=== PATIENT | female | born 1990 ===

== ENCOUNTER → 2017-01-20 | Outpatient (CLI) | payer BC ==
[2017-01-22 23:02] LABS: CHLAMYDIA TRACH RNA*** NOT DETECTED (NOT DETECTED); GC (NEIS GONORRHOEAE)RNA** NOT DETECTED (NOT DETECTED)
== END | disposition home or self-care (01) ==
LOC: C.LABSPEC 13:41
PROVIDERS: ATTEND Obstetrics & Gynecology
DX: Z11.3 Encounter for screening for infections with a predominantly sexual mode of transmission (principal)

== ENCOUNTER → 2017-01-20 | Outpatient (CLI) | payer BC | END | disposition home or self-care (01) | LOC: C.PAPS 14:28 | PROVIDERS: ATTEND Obstetrics & Gynecology | DX: Z01.419 Encounter for gynecological examination (general) (routine) without abnormal findings (principal) ==

== ENCOUNTER → 2017-04-03 | Outpatient (CLI) | payer BC ==
--- NOTE | 2017-04-04 06:36 | DIAGNOSTIC IMAGING REPORT ---
SCOLIOSIS SERIES CLINICAL HISTORY: SCOLIOSIS COMPARISON STUDY: No previous studies for comparison. FINDINGS: When measuring from the superior endplate of T9 through the inferior endplate of L2, there is 23 degrees of dextroscoliosis. When measuring from the superior endplate of L3 through the inferior endplate L5, there is 7 degrees of levoscoliosis. Lungs are clear. Bowel gas pattern is normal. A density projecting of the pelvis could reflect an intrauterine device. IMPRESSION: 23 degrees of dextroscoliosis of the lower thoracic and upper lumbar spine and 7 degrees of levoscoliosis of the lower lumbar spine. Electronically signed by: Jose Myers M.D. 04/04/2017 6:35 AM Dictated Date/Time: 04/04/2017 6:32 AM
== END | disposition home or self-care (01) ==
LOC: C.RDSM 12:58
PROVIDERS: ATTEND Physical Medicine & Rehabilitation
DX: M41.125 Adolescent idiopathic scoliosis, thoracolumbar region (principal)

== ENCOUNTER → 2017-07-08 | Outpatient (CLI) | payer BC ==
[~2017-07-08] VITALS: Ht 167.6 cm; Wt 77.3 kg
[2017-07-08 12:12] VITALS: BP 121/78; PULSE 73
[2017-07-08 12:14] VITALS: BP 121/78; PULSE 73; Ht 167.6 cm; Wt 77.3 kg
== END | disposition home or self-care (01) ==
LOC: C.NEUR 11:52
PROVIDERS: ATTEND Physician Assistant Medical
DX: G47.19 Other hypersomnia (principal); R06.83 Snoring; R06.81 Apnea, not elsewhere classified

== ENCOUNTER → 2017-07-22 | Outpatient (CLI) | payer BC ==
--- NOTE | 2017-07-24 16:05 | POLYSOMNOGRAPH REPORT ---
CLINICAL DATA: A 26-year-old female with a BMI of 27.3 referred by Jenna Davis, myself and Dr. Perea, for symptoms of excessive daytime sleepiness, snoring, and witnessed apnea. On the evening of 07/22/2017, a home sleep apnea test was performed using a [employer] type 3 monitor. RECORDING RESULTS: Total recording time was 10 hours. The patient's monitoring time and estimated sleep time was 8.7 hours. RESPIRATORY DATA: There was no evidence of clinically significant sleep apnea/hypopnea seen. The MARTHA was 0.9. There was 1 obstructive and 2 central apneic episodes. There were 5 hypopneic episodes. The longest respiratory event was 31 seconds. OXIMETRY DATA: No significant hypoxemia was seen. Oxygen lito was 87%. Mean saturation 92%. HEART RATE DATA: Heart rates ranged from 47-58 beats per minute. SNORING DATA: Snoring was recorded throughout the night. IMPRESSION: No evidence of clinically significant sleep apnea/hypopnea, or nocturnal hypoxemia to explain this patient's symptoms. RECOMMENDATIONS: The patient should continue to practice good sleep hygiene. MARYANN
== END | disposition home or self-care (01) ==
LOC: C.NEUR 10:12
PROVIDERS: ATTEND Physician Assistant Medical
DX: G47.19 Other hypersomnia (principal); R06.81 Apnea, not elsewhere classified; F41.9 Anxiety disorder, unspecified; F32.9 Major depressive disorder, single episode, unspecified; R06.83 Snoring